=== PATIENT | female | born 1950 | race Caucasian/White ===

== ENCOUNTER 2016-09-09 09:54 | Emergency (ER) | payer MEDICARE, OTHER ==
[~2016-09-09] VITALS: Ht 165.1 cm; Wt 86.4 kg
[~2016-09-09 09:54] MED LIST: ASPI-557 PO; CHLO50TA PO; iron PO
[2016-09-09 09:58] VITALS: Ht 165.1 cm; Wt 86.4 kg
--- NOTE | 2016-09-09 09:58 | NUR ---
HX PT REPORTS DRY HACKY COUGH. COUGH SOUNDS LIKE COUGH SHE HAD WHEN SHE WAS ON LISINOPRIL
--- NOTE | 2016-09-09 10:00 | NUR ---
HX PT REPORTS SHE WAS UP TILL 99 WITH ACID REFLUX
--- OUTSIDE RECORDS SUMMARY | 2016-09-09 10:00 | XMS REPORT | Continuity of Care Document ---
Author Author [facility] Organization [facility] Address Unknown Phone Unavailable Support Name Relationship Address Phone JESSICAHARRY ORTIZ Caregiver [facility] [address] [place], [place] [id number] MARIYA PATEL MD Caregiver [address] [place] [address] DEANGELO CLARK MD Caregiver [address] [place] [address] Jorge MARISCAL Next Of Kin [place], [place] [id number] Insurance Providers Payer Name Policy Number Subscriber Name Relationship Auto A Insurance Amy Mariscal 18 Self Advance Directives Directive Response Recorded Date/Time Advanced Directives Type None 05/19/14 4:00pm Problems Medical Problems Problem Onset Date Status Facial numbness Unknown Active Chest wall pain Unknown Active Headache Unknown Active Medications No known medications. Social History Social History Problem Response Recorded Date/Time Smoking Status Former smoker 05/19/2014 4:00pm When did patient START smoking? AGE 10 05/19/2014 4:00pm When did patient STOP smoking? 1983 05/19/2014 4:00pm Hospital Discharge Instructions No hospital discharge instructions. Plan of Care No plan of care. Functional Status Query Response Date Recorded Physical Hygiene Self May 19, 2014 4:00pm Disabilities None May 19, 2014 4:00pm Devices Used Glasses May 19, 2014 4:00pm Dressing Self May 19, 2014 4:00pm Ambulation Self May 19, 2014 4:00pm Diet Self May 19, 2014 4:00pm Mental Status Alert Oriented May 19, 2014 4:00pm Disabilities None May 19, 2014 4:00pm Devices Used Glasses May 19, 2014 4:00pm Physical Hygiene Self May 19, 2014 4:00pm Dressing Self May 19, 2014 4:00pm Ambulation Self May 19, 2014 4:00pm Diet Self May 19, 2014 4:00pm Allergies, Adverse Reactions, Alerts Allergen Type Severity Reaction Status Last Updated Sulfa (Sulfonamide Antibiotics) Allergy Unknown Active 05/19/14 Amoxicillin Allergy Unknown Active 05/19/14 Immunizations Name Given Type Hx Influenza Vaccination No Historical Hx Influenza Vaccination No Historical Vital Signs Acute Vital Signs Vital Response Date/Time Temperature (Fahrenheit) 96.8 deg F (96.8 - 99.1) Temperature (Calculated Celsius) 36.69824 degrees C (36.0 - 37.3) Pulse Rate (adult) 80 bpm (60 - 100) Respiratory Rate 16 breaths/min (10 - 20) O2 Sat by Pulse Oximetry 99 % (90 - 100) Blood Pressure 137/62 mm Hg Height 5 ft 5 in Weight 197 lb Body Mass Index 32.0 kg/m^2 Results Test Source Date Result Interp. Ref. Range Comments Alanine Aminotransferase (ALT/SGPT) May 19, 2014 4:42pm 38 U/L N 9- 52 Albumin May 19, 2014 4:42pm 4.2 G/DL N 3.5-5.0 Albumin/Globulin Ratio May 19, 2014 4:42pm 1.6 RATIO N 1.1-2.2 Alkaline Phosphatase May 19, 2014 4:42pm 74 U/L N 38-126 Anion Gap May 19, 2014 4:42pm 11 MEQ/L N 5-15 Aspartate Amino Transf (AST/SGOT) May 19, 2014 4:42pm 26 U/L N 14- 36 BUN/Creatinine Ratio May 19, 2014 4:42pm 28 RATIO H 6-26 Basophils # (Auto) November 24, 2007 4:39pm 0.0 T/MM3 N 0-0.2 Basophils (%) (Auto) November 24, 2007 4:39pm 0.4 % N 0-2 Blood Urea Nitrogen May 19, 2014 4:42pm 22.0 MG/DL H 7-17 Bordetella pertussis DNA (PCR) July 08, 2010 1:14pm Ref lab rpt scanned - --- 07/09/10 1549 ---BORDPCR previously reported as: SENT OUT Calcium Level May 19, 2014 4:42pm 9.3 MG/DL N 8.4-10.2 Calculated Osmolality May 19, 2014 4:42pm 278 MOSM/KG N 261-280 Carbon Dioxide Level May 19, 2014 4:42pm 27 MEQ/L N 22-30 Chloride Level May 19, 2014 4:42pm 105 MEQ/L N 98-107 Creatinine May 19, 2014 4:42pm 0.8 MG/DL N 0.7-1.2 Eosinophils # (Auto) November 24, 2007 4:39pm 0.2 T/MM3 N 0-0.5 Eosinophils (%) (Auto) November 24, 2007 4:39pm 2.2 % N 0-4 Globulin May 19, 2014 4:42pm 2.6 G/DL N 2.4-3.6 Glucose Level May 19, 2014 4:42pm 103 MG/DL N 65-110 Hematocrit May 19, 2014 4:42pm 40.9 % N 36-46 Hemoglobin May 19, 2014 4:42pm 13.5 GM/DL N 12-16 Lymphocytes # (Auto) November 24, 2007 4:39pm 2.5 T/MM3 N 1-4.8 Lymphocytes (%) (Auto) November 24, 2007 4:39pm 23.3 % N 23-45 Mean Corpuscular Hemoglobin May 19, 2014 4:42pm 29.3 UUG N 26-34 Mean Corpuscular Hemoglobin Concent May 19, 2014 4:42pm 33.0 GM/DL N 31-37 Mean Corpuscular Volume May 19, 2014 4:42pm 88.7 UM3 N 80-100 Mean Platelet Volume May 19, 2014 4:42pm 9.7 UM3 N 9.4-12.4 Monocytes # (Auto) November 24, 2007 4:39pm 0.6 T/MM3 N 0-0.8 Monocytes (%) (Auto) November 24, 2007 4:39pm 5.7 % N 0-9.0 Neutrophils # (Auto) November 24, 2007 4:39pm 7.3 T/MM3 N 1.8-7.7 Neutrophils (%) (Auto) November 24, 2007 4:39pm 68.4 % H 33-66 Platelet Count May 19, 2014 4:42pm 252 T/MM3 N 130-400 Potassium Level May 19, 2014 4:42pm 3.9 MEQ/L N 3.6-5 RDW Standard Deviation May 19, 2014 4:42pm 42.3 FL N 36.9-50.2 Red Blood Count May 19, 2014 4:42pm 4.61 M/MM3 N 4.00-5.20 Sodium Level May 19, 2014 4:42pm 143 MEQ/L N 134-144 Total Bilirubin May 19, 2014 4:42pm 0.30 MG/DL N 0.20-1.30 Total Protein May 19, 2014 4:42pm 6.8 G/DL N 6.3-8.2 Troponin I May 19, 2014 4:42pm < 0.012 ng/ml 0-0.12 Urine Bilirubin November 24, 2007 4:18pm Negative - Has specimen been collected/obtained? Y Urine Blood November 24, 2007 4:18pm 1+ - Has specimen been collected/ obtained? Y Urine Collection Type November 24, 2007 4:18pm Voided - Has specimen been collected/obtained? Y Urine Color November 24, 2007 4:18pm Yellow - Has specimen been collected/ obtained? Y Urine Glucose (UA) November 24, 2007 4:18pm Negative - Has specimen been collected/obtained? Y Urine Ketones November 24, 2007 4:18pm Negative - Has specimen been collected/obtained? Y Urine Leukocyte Esterase November 24, 2007 4:18pm Negative - Has specimen been collected/obtained? Y Urine Nitrite November 24, 2007 4:18pm Negative - Has specimen been collected/obtained? Y Urine Protein November 24, 2007 4:18pm Negative - Has specimen been collected/obtained? Y Urine RBC November 24, 2007 4:18pm 0-1 /HPF - Has specimen been collected/ obtained? Y Urine Specific [place] November 24, 2007 4:18pm 1.005 - Has specimen been collected/obtained? Y Urine Squamous Epithelial Cells November 24, 2007 4:18pm Few - Has specimen been collected/obtained? Y Urine Turbidity November 24, 2007 4:18pm Clear - Has specimen been collected/obtained? Y Urine Urobilinogen November 24, 2007 4:18pm Normal EU/DL - Has specimen been collected/obtained? Y Urine WBC November 24, 2007 4:18pm None seen /HPF - Has specimen been collected/obtained? Y Urine pH November 24, 2007 4:18pm 7.0 - Has specimen been collected/ obtained? Y White Blood Count May 19, 2014 4:42pm 9.1 T/MM3 N 4.5-11.0 Chemistry Specimen Hemolysis May 19, 2014 4:42pm < 15 0-25 0-25 : No Hemolysis.26-70: Slight Hemolysis - can falsely elevate K and Urine Protein. 71-285: Moderate Hemolysis - can falsely elevate K, Troponin I, CA 19-9, PTH, CSF GLucose, and Urine Protein, and can falsely decrease Phenytoin. 286-999: Gross Hemolysis - can falsely elevate K, Troponin I, CA 19-9, PTH, CSF Glucose, and Urine Protine, and can falsely decrease Phenytoin. Recommend specimen recollection. Lab Scanned Report July 09, 2010 4:34pm [facility] [id number] - Turbidity May 19, 2014 4:42pm < 20 0-20 Glomerular Filtration Rate Calc May 19, 2014 4:42pm 72 - Icterus Index May 19, 2014 4:42pm < 2 0-7 Procedures No known history of procedures. Encounters Encounter Location Date/Time Departed Emergency Room [facility] 05/19/14 4:00pm Recent Diagnosis
--- OUTSIDE RECORDS SUMMARY | 2016-09-09 10:00 | XMS REPORT | Continuity of Care Document ---
Author Author [facility] Organization [facility] Address Unknown Phone Unavailable Support Name Relationship Address Phone CAROL BENITES APRN Caregiver [address] [place] [address] Unavailable DIANNA WISE DO Caregiver [address] [place] [address] Unavailable Jorge MARISCAL Next Of Kin [address] [place] [address] CP Insurance Providers Guarantor Amy Mariscal Address [address] [place] [address] CP Email [email or web address] Payer [employer] Policy Number [id number] Subscriber's Name Amy Mariscal Relationship 18 Self Group Number [facility] Payer Medicare Policy Number [id number] Subscriber's Name Amy Mariscal Relationship 18 Self Chief Complaint and Reason for Visit Chief Complaint Chest Pain Reason for Visit [id number] Atypical chest pain Problems Active Problems Medical Problem Onset Date Status Atypical chest pain Unknown Acute Chest wall pain Unknown Acute Facial numbness Unknown Acute Facial numbness Unknown Acute Headache Unknown Acute Numbness and tingling Unknown Acute Past Problems Medical Problem Onset Date Atypical chest pain Unknown Neck strain Unknown Medications Current Home Medications Medication Dose Units Route Directions Days Qty Instructions Start Date Aspirin (Aspir 81) 81 Mg Tablet.dr 81 Mg Oral Daily 09/07/16 Chlorthalidone 50 Mg Tablet 50 Mg Oral Give With Breakfast BEST TAKEN WITH FOOD. 09/07/16 Iron 1 Tab Oral Daily 09/07/16 Social History Social History Problem Response Recorded Date/Time Onset Date Status Hx Substance Use No 09/07/2016 5:04pm Not Applicable Not Applicable Hx Alcohol Use No 09/07/2016 5:04pm Not Applicable Not Applicable Tobacco Usage none 05/19/2014 4:50pm Not Applicable Not Applicable Query Response Start Date Stop Date Smoking Status Never smoker Hospital Discharge Instructions No hospital discharge instructions. Plan of Care Discharge Date 09/07/16 6:05pm Disposition 01 DISCHARGED HOME, SELF-CARE Condition at Discharge Stable Instructions/Education Provided Chest Pain (ED) Prescriptions See Medication Section Referrals CAROL BENITES [employer] Address: [address] [place] [address] [phone] Additional Instructions/Education Follow up for recheck of your labs if your symptoms continue to make sure that your potassium is back in normal range. Your labs today look good. I do want you to make sure that you are drinking plenty of fluids at home. Follow up with Dr Dominguez or your primary care provider as needed. Care Plan and Goals Physician Care Plan Problem:Numbness/tingling, chest pain Goal: Follow up with primary care provider Instructions: Take medications and follow care plan as discussed/written Functional Status No functional status results. Allergies, Adverse Reactions, Alerts Allergen Type Severity Reaction Status Last Updated Sulfa (Sulfonamide Antibiotics) Allergy Unknown Active 09/07/16 Lisinopril Allergy Unknown Active 09/07/16 Hydrochlorothiazide Allergy Unknown Active 09/07/16 Chlorthalidone Allergy Unknown Active 09/07/16 Amoxicillin Allergy Unknown Active 09/07/16 Losartan Allergy Unknown Active 09/07/16 Immunizations Query Response on File Recorded Date/Time Hx Influenza Vaccination No 05/19/14 4:00pm Hx Influenza Vaccination No 05/19/14 4:00pm Influenza Vaccine Hx NO 09/07/16 5:04pm Vital Signs Acute Vital Signs Vital Response Date/Time Temperature (Fahrenheit) 97.8 deg F (96.8 - 99.1) 09/07/2016 6:05pm Temperature (Calculated Celsius) 36.15858 degrees C (36.0 - 37.3) 09/07/2016 6:05pm Pulse Rate (adult) 80 bpm (60 - 100) 09/07/2016 6:05pm Respiratory Rate 20 breaths/min (10 - 20) 09/07/2016 6:05pm O2 Sat by Pulse Oximetry 99 % (90 - 100) 09/07/2016 6:05pm Blood Pressure 129/63 mm Hg 09/07/2016 6:05pm Height (Feet) 5 feet 09/07/2016 4:23pm Height (Inches) 5.50 inches 09/07/2016 4:23pm Weight (Kilograms) 85.000 kg 09/07/2016 4:23pm Body Mass Index (BMI) 30.0 09/07/2016 4:23pm Results Laboratory Results Test Name Result Units Flags Reference Collection Date/Time Result Date/ Time Comments White Blood Count 9.5 T/MM3 4.5-11.0 09/07/2016 4:1609/07/2016 4: 37pm Red Blood Count 4.59 M/MM3 4.00-5.20 09/07/2016 4:09/07/2016 4: 37pm Hemoglobin 13.7 GM/DL 12-16 09/07/2016 4:09/07/2016 4:37pm Hematocrit 40.2 % 36-46 09/07/2016 4:09/07/2016 4:37pm Mean Corpuscular Volume 87.6 UM3 80-100 09/07/2016 4:09/07/2016 4: 37pm Mean Corpuscular Hemoglobin 29.8 UUG 26-34 09/07/2016 4:2016 4:37pm Mean Corpuscular Hemoglobin Concent 34.1 GM/DL 31-37 09/07/2016 4:09/07/2016 4:37pm RDW Standard Deviation 39.4 FL 36.9-50.2 09/07/2016 4:09/07/2016 4 :37pm Platelet Count 283 T/MM3 130-400 09/07/2016 4:09/07/2016 4:37pm Mean Platelet Volume 9.9 UM3 9.4-12.4 09/07/2016 4:09/07/2016 4: 37pm Neutrophils (%) (Auto) 60.8 % 33-66 09/07/2016 4:09/07/2016 4: 37pm Lymphocytes (%) (Auto) 27.3 % 23-45 09/07/2016 4:09/07/2016 4: 37pm Monocytes (%) (Auto) 6.5 % 0-9.0 09/07/2016 4:09/07/2016 4:37pm Eosinophils (%) (Auto) 4.8 % H 0-4 09/07/2016 4:09/07/2016 4:37pm Basophils (%) (Auto) 0.5 % 0-2 09/07/2016 4:09/07/2016 4:37pm Immature Granulocyte % (Auto) 0.1 % 0.0-0.5 09/07/2016 4:16pm 2016 4:37pm Absolute Neutrophils (auto) 5.8 T/MM3 1.8-7.7 09/07/2016 4:162016 4:37pm Absolute Lymphocytes (auto) 2.6 T/MM3 1-4.8 09/07/2016 4:162016 4:37pm Absolute Monocytes (auto) 0.6 T/MM3 0-0.8 09/07/2016 4:1609/07/2016 4:37pm Absolute Eosinophils (auto) 0.5 T/MM3 0-0.5 09/07/2016 4:16pm 2016 4:37pm Absolute Basophils (auto) 0.1 T/MM3 0-0.2 09/07/2016 4:16pm 09/07/2016 4:37pm Absolute Immature Granulocyte (auto 0.01 T/MM3 0.00-0.03 09/07/2016 4: 09/07/2016 4:37pm Icterus Index < 2 0-7 09/07/2016 4:pm 09/07/2016 4:49pm Chemistry Specimen Hemolysis < 15 0-25 09/07/2016 4:09/07/2016 4 :49pm 0-25: Specimen Exhibited No Hemolysis. Turbidity < 20 0-20 09/07/2016 4:09/07/2016 4:49pm Sodium Level 142 MEQ/L 134-144 09/07/2016 4:09/07/2016 4:49pm Potassium Level 3.1 MEQ/L L 3.6-5 09/07/2016 4:09/07/2016 4:49pm Chloride Level 103 MEQ/L 98-107 09/07/2016 4:09/07/2016 4:49pm Carbon Dioxide Level 29 MEQ/L 22-30 09/07/2016 4:09/07/2016 4: 49pm Anion Gap 10 MEQ/L 5-15 09/07/2016 4:16pm 09/07/2016 4:49pm Blood Urea Nitrogen 23.0 MG/DL H 7-17 09/07/2016 4:09/07/2016 4: 49pm Creatinine 0.6 MG/DL L 0.7-1.2 09/07/2016 4:16pm 09/07/2016 4:49pm BUN/Creatinine Ratio 38 RATIO H 6-26 09/07/2016 4:16pm 09/07/2016 4: 49pm Glomerular Filtration Rate Calc 100 09/07/2016 4:16pm 09/07/2016 4: 49pm Glucose Level 117 MG/DL H 65-110 09/07/2016 4:16pm 09/07/2016 4:49pm Calculated Osmolality 278 MOSM/KG 261-280 09/07/2016 4:16pm 09/07/2016 4:49pm Calcium Level 9.3 MG/DL 8.4-10.2 09/07/2016 4:16pm 09/07/2016 4:49pm Troponin I < 0.012 ng/ml 0-0.12 09/07/2016 4:16pm 09/07/2016 4:59pm Troponin values with a difference of 55% increase from orginal troponin value represent a true biological DELTA value. (%increase Calc=Orginal Troponin value, divided by subsequent Troponin value, multiplied by 100) Name: AMY MARISCAL Unit #: [id number] : 1950 Sex: F Admit Date: Loc / Svc: ED Discharge Date: DIAGNOSTIC IMAGING REPORT Report #: [id number] [facility] BUZZ Lizama Indication: ITS.REASON: chest pain Procedure: CHEST, PA LATERAL: Encounter: Initial Comparison: 02/24/2016 Technique: PA and lateral radiographs of the chest were obtained. Findings: Lungs and airways: Normal lung volumes. No focal airspace consolidation. Normal pulmonary vasculature. Pleura: No pleural effusion or pneumothorax. Heart and mediastinum: The cardiomediastinal silhouette and great vessels are within normal limits. Osseous structures and soft tissues: No acute osseous abnormality is seen. Degenerative arthrosis of the AC joints. Impression: No acute cardiopulmonary process. . Procedures No known history of procedures. Encounters Encounter Location Arrival/Admit Date Discharge/Depart Date Attending Provider Departed Emergency Room [facility] 09/07/16 4:04pm 09/07/16 6: 05pm DIANNA WISE DO Recent Diagnosis
--- OUTSIDE RECORDS SUMMARY | 2016-09-09 10:00 | XMS REPORT | Continuity of Care Document ---
Author Author [facility] Organization [facility] Address Unknown Phone Unavailable Allergies Medications Problems Procedures Results Encounters ACCT No. Visit Date/Time Discharge Status Pt. Type Provider Facility Loc./Unit Complaint [id number] 09/16/2013 10:49:00 09/16/2013 23 :59:59 CLS Outpatient [id number] 09/02/2013 10:22:00 09/02/2013 23 :59:59 CLS Outpatient [id number] 08/13/2013 16:42:00 08/13/2013 23 :59:59 CLS Outpatient [id number] 07/30/2013 08:56:00 07/30/2013 23 :59:59 CLS Outpatient
[2016-09-09] MEDS ORDERED: NITR0.4T PO (10:28)
[2016-09-09] MEDS ORDERED: GADOBUTROL 10mMol/10ml INJECTION IV ONE (10:36)
[2016-09-09] MEDS ORDERED: SALINE FLUSH 10ml SYRINGE ONE (10:37)
--- NOTE | 2016-09-09 10:41 | ERPDOC ---
Departure Disposition Decision Date: Sep 09, 2016 Disposition Decision Time: 14:40 Disposition: 01 DISCHARGED HOME, SELF-CARE Impression Impression Impression: Primary Impression: Chest wall pain Additional Impressions: Hypertension Anxiety Severity: Moderate Condition: Improved Seen By: Physician only Referrals: CAROL BENITES APRN (Family) Patient Instructions: Noncardiac Chest Pain (ED) Problems/Meds/Labs Reviewed?: Yes Medications reviewed and manag: Yes Additional Instructions: Follow-up with cardiology about your blood pressure management and possible cardiac stress test. Return to emergency department if you have more chest pain. Ativan 0.5 mg tab, 1 tablet daily as needed for anxiety. Follow up care ordered?: Yes Mental Status: Alert, Oriented Scripts Lorazepam (Ativan) 0.5 Mg Tablet 0.5 MG PO DAILY for ANXIETY, #10 TAB Prov: LUIS PEREIRA MD 09/09/16 HPI - Chest Pain General Chief Complaint: Chest Pain Stated Complaint: REFFERED NEDICH, HEAVY CHEST, FEVER, POSS UTI Time Seen by Provider: 10:37 HPI - Chest Pain Initial Comments 65-year-old female presents with chest pain times greater than 1 week. She's had chest tightness since she went on a blood pressure med several weeks ago, she was changed to chlorthalidone, but is continued to have some symptoms of dizziness, lightheadedness, chest tightness. She did have really bad heartburn this morning which she describes as "fierce". She went to her physician's office and was sent to the emergency department for evaluation due to chest pain. She doesn't feel like this is really a change from more she's been, but respects that her provider was concerned and so she came in. She's had no nausea vomiting, no diaphoresis. No shortness of breath. She is definitely stressed because she has felt so bad over the last couple weeks. She's had no energy, is felt lightheaded, dizzy, decreased appetite, very tired but poor sleeping. Aspirin Treatment Today: 81 mg x 4 Allergies: Coded Allergies: Sulfa (Sulfonamide Antibiotics) (Verified Allergy, Unknown, 09/09/16) amoxicillin (Verified Allergy, Unknown, 09/09/16) chlorthalidone (Verified Allergy, Unknown, 09/09/16) hydrochlorothiazide (Verified Allergy, Unknown, 09/09/16) lisinopril (Verified Allergy, Unknown, 09/09/16) losartan (Verified Allergy, Unknown, 09/09/16) Past History Past Medical History Metabolic: hypertension Hx Echocardiogram: No Surgical History General: other Family History Family PMH: FOUND: CAD, AL, other Vaccines Hx Influenza Vaccination: No Social History Smoking Status: Never smoker Substance Use Type: does not use Alcohol Intake: none Sexuality: male partner Record Review Pertinent history updated: Yes Review of Systems Cardiovascular Cardiac: see HPI Pulmonary Respiratory: see HPI GI Upper Abdomen: see HPI All other Systems All Other Systems: Reviewed and Negative Physical Exam General General Nourishment: well nourished, well developed, appears stated age, no acute distress General Body Habitus: well groomed Vitals and Pain First Documented Vital Signs Date Time Temp Pulse Resp B/P Pulse Ox O2 Delivery O2 Flow Rate FiO2 09/09/16 09:58 98.2 68 15 185/73 100 Room Air Weight: Kilograms: Height (feet): 5 Height (inches): 5.50 Triage Pain Scale: Normal Exams: Head: Normocephalic w/o trauma Chest/Resp: Clear all [place], with good airflow, and symmetry bilaterally CV: Regular rate and rhythm, without murmur or gallop, Pulses 2+ all extremities, capillary refill, <2 seconds all ext., no pedal edema noted Abdomen: Bowel sounds positive, soft, non-tender, non-distended, no hepatosplenomegaly, masses or bruits noted Neurologic: Patient is alert, and oriented, cranial nerves, motor/sensory/ cerebellar, exams w/o gross deficits, to observation Psychiatric: Patient exhibits, appropriate attention, emotion and affect Differential Diagnoses Considering: Acute AL, Anxiety/Panic, Angina, Pericarditis, Pneumonia, Pulmonary Edema, Pulmonary Embolus Progress Results/Orders Orders Procedure Category Date Status Time Cbc W/Auto LAB 09/09/16 Complete Diff-Reflex Manual 10:42 Cmp - Comprehensive LAB 09/09/16 Complete Metabolic 10:42 Probnp LAB 09/09/16 Complete 10:42 Troponin I W LAB 09/09/16 Complete Hemolysis Index 10:42 INR LAB 09/09/16 Complete 10:42 Ua, Dip Wreflex LAB 09/09/16 Complete Microsc & Patient Carrier 10:42 D-Dimer LAB 09/09/16 Complete 10:42 Tsh - Thyroid Stim LAB 09/09/16 Complete Hormone 10:42 EKG EKG 09/09/16 Logged 10:42 Chest, Pa & Lateral RAD 09/09/16 Resulted 10:42 Aspirin (Asa) PHA 09/09/16 Complete 10:45 Nitroglycerin PHA 09/09/16 In Process (Nitrostat) 10:45 G.I. Cocktail PHA 09/09/16 Complete (/Maalox/Lidocaine 10:45 Lorazepam (Ativan) PHA 09/09/16 Complete 13:15 Lab Results Laboratory Tests Test 09/09/16 10:16 09/09/16 10:58 Urine Collection Type Voided-not cc-midstr Urine Color Yellow Urine Turbidity Clear Urine pH 5.5 Urine Specific [place] <=1.005 Urine Protein Negative Urine Glucose (UA) Negative Urine Ketones Negative Urine Blood Negative Urine Nitrite Negative Urine Bilirubin Negative Urine Urobilinogen 0.2EU/DL Urine Leukocyte Esterase Negative Urinalysis Comment Microscopic not ind. White Blood Count 7.9T/MM3 Red Blood Count 4.38M/MM3 Hemoglobin 13.2GM/DL Hematocrit 39.1% Mean Corpuscular Volume 89.3UM3 Mean Corpuscular Hemoglobin 30.1UUG Mean Corpuscular Hemoglobin Concent 33.8GM/DL RDW Standard Deviation 40.7FL Platelet Count 242T/MM3 Mean Platelet Volume 9.6UM3 Immature Granulocyte % (Auto) 0.1% Neutrophils (%) (Auto) 53.7% Lymphocytes (%) (Auto) 32.1% Monocytes (%) (Auto) 8.0% Eosinophils (%) (Auto) 5.7% Basophils (%) (Auto) 0.4% Absolute Immature Granulocyte (auto 0.01T/MM3 Absolute Neutrophils (auto) 4.2T/MM3 Absolute Lymphocytes (auto) 2.5T/MM3 Absolute Monocytes (auto) 0.6T/MM3 Absolute Eosinophils (auto) 0.5T/MM3 Absolute Basophils (auto) 0.0T/MM3 Prothromb Time International Ratio 0.99 D-Dimer < 150NG/ML Turbidity < 20 Sodium Level 145MEQ/L Potassium Level 4.8MEQ/L Chloride Level 105MEQ/L Carbon Dioxide Level 29MEQ/L Anion Gap 11MEQ/L Blood Urea Nitrogen 18.0MG/DL Creatinine 0.6MG/DL Glomerular Filtration Rate Calc 100 BUN/Creatinine Ratio 30RATIO Glucose Level 92MG/DL Calculated Osmolality 281MOSM/KG Calcium Level 9.6MG/DL Total Bilirubin 0.40MG/DL Icterus Index < 2 Aspartate Amino Transf (AST/SGOT) 23U/L Alanine Aminotransferase (ALT/SGPT) 33U/L Alkaline Phosphatase 66U/L Troponin I < 0.012ng/ml CH-Kln-K-Type Natriuretic Peptide 289PG/ML Total Protein 6.9G/DL Albumin 4.0G/DL Globulin 2.9G/DL Albumin/Globulin Ratio 1.4RATIO Thyroid Stimulating Hormone (TSH) 0.91MIU/L Chemistry Specimen Hemolysis < 15 Medications Current ED Medications Gadobutrol (Gadavist) STK-MED ONCE IV ; Start 09/09/16 at 10:36; Stop 09/09/16 at 10:37; Status DC Sodium Chloride (Iv Flush) 10 ml STK-MED ONCE .ROUTE ; Start 09/09/16 at 10:37; Stop 09/09/16 at 10:38; Status DC Aspirin (ASA) 324 mg O ONCE PO Last administered on 09/09/16 10:58; Start at 10:45; Stop 09/09/16 at 10:46; Status DC Nitroglycerin (Nitrostat) 0.4 mg Q5MIN PRN SL CHEST PAIN; Start 09/09/16 at 10: 45 Pharmacy Profile Note (/Maalox/ Lidocaine Soln) 30 ml O ONCE PO Last administered on 09/09/16 10:59; Start 09/09/16 at 10:45; Stop 09/09/16 at 10:47 ; Status DC Lorazepam (Ativan) 0.5 mg O ONCE PO Last administered on 09/09/16 13:21; Start 09/09/16 at 13:15; Stop 09/09/16 at 13:16; Status DC Progress Progress Labs returned normal, chest x-ray is appropriate. EKG is negative. Blood pressure stayed elevated, initially, by time of discharge had decreased to 145/ 68. She would like to stay off the blood pressure meds if possible. She has had side effects with them and is not comfortable with them. I recommended she follow up with cardiology to see about a change in the medication. Also like her to follow up on the possible need of a cardiac stress test. While she was here, she spoke with a coworker over the phone. They talked about some stress at work and her blood pressure jumped to 190s systolic. She wondered if that was part of the cause of her hypertension. I agreed to try Ativan, we did Ativan 0.5 mg by mouth 1. She had great response, blood pressure decreased and she was much more comfortable. I don't want to use this long-term, but do think short-term or occasional it may be appropriate for her. She'll need to discuss this with her primary care provider to make sure that it is appropriate. She was given Ativan 0.5 mg, #10 tabs total to be used once daily as needed. My hope would be that she would start some much further than 10 days. LUIS PEREIRA MD Sep 09, 2016 10:41
[2016-09-09] MEDS ORDERED: ASPIRIN 81 MG CHEWABLE TABLET PO ONE (10:45)
[2016-09-09] MEDS ORDERED: G.I. COCKTAIL 30ml PO ONE (10:45)
[2016-09-09] MEDS ORDERED: NITROGLYCERIN 0.4 MG SUBLINGUAL TABLET SL PRN (10:45)
--- OUTSIDE RECORDS SUMMARY | 2016-09-09 10:46 | XMS REPORT | Continuity of Care Document ---
Author Author [facility] Organization [facility] Address Unknown Phone Unavailable Support Name Relationship Address Phone JESSICAHARRY ORTIZ Caregiver [facility] [address], [place] [id number] MARIYA PATEL MD Caregiver [address] [place] [address] DEANGELO CLARK MD Caregiver [address] [place] [address] Jorge MARISCAL Next Of Kin [place], [place] [id number] Insurance Providers Payer Name Policy Number Subscriber Name Relationship Auto A Insurance Aym Mariscal 18 Self Advance Directives Directive Response [...] F (96.8 - 99.1) Temperature (Calculated Celsius) [phone] degrees C (36.0 - 37.3) Pulse Rate [...] specimen been collected/ obtained? Y Urine Specific [place] November 24, 2007 4:18pm 1.005 - Has [...] Report July 09, 2010 4:34pm REFERENCE LAB [id number] - Turbidity May 19, 2014 4:42pm < 20 0-20 Glomerular Filtration Rate Calc May 19, 2014 4:42pm 72 - Icterus Index May 19, 2014 4:42pm < 2 0-7 Procedures No known history of procedures. Encounters Encounter Location Date/Time Departed Emergency Room [facility] 05/19/14 4:00pm Recent Diagnosis
--- OUTSIDE RECORDS SUMMARY | 2016-09-09 10:47 | XMS REPORT | Continuity of Care Document ---
Author Author [facility] Organization [facility] Address Unknown Phone Unavailable Allergies Medications Problems Procedures Results Encounters ACCT No. Visit Date/Time Discharge Status Pt. Type Provider Facility Loc./Unit Complaint [id number] 09/16/2013 10:49:00 09/16/2013 23 :59:59 CLS Outpatient [id number] 09/02/2013 10:22:00 09/02/2013 23 :59:59 CLS Outpatient [id number] 08/13/2013 16:42:00 08/13/2013 23 :59:59 CLS Outpatient [id number] 07/30/2013 08:56:00 07/30/2013 23 :59:59 CLS Outpatient
[2016-09-09 10:59] LABS: BLOOD, URINE NEGATIVE (NEGATIVE); COLOR,URINE YELLOW (YELLOW); LEUKOCYTE ESTERASE ,URINE NEGATIVE (NEGATIVE); NITRITE,URINE NEGATIVE (NEGATIVE); UROBILINOGEN,URINE 0.2 EU/DL (NORMAL)
[2016-09-09 11:04] LABS: BASOPHILS % (AUTO) 0.4 % (0-2); EOSINOPHILS # (AUTO) 0.5 T/MM3 (0-0.5); EOSINOPHILS % (AUTO) 5.7 % (0-4); HCT - HEMATOCRIT 39.1 % (36-46); HGB - HEMOGLOBIN 13.2 GM/DL (12-16); IMMATURE GRANULOCYTE # (AUTO) 0.01 T/MM3 (0.00-0.03); IMMATURE GRANULOCYTE % (AUTO) 0.1 % (0.0-0.5); LYMPHOCYTES # (AUTO) 2.5 T/MM3 (1-4.8); LYMPHOCYTES % (AUTO) 32.1 % (23-45); MEAN CORPUSCULAR HGB 30.1 UUG (26-34); MEAN CORPUSCULAR HGB CONC(MCHC 33.8 GM/DL (31-37); MEAN CORPUSCULAR VOLUME 89.3 UM3 (80-100); MEAN PLATELET VOLUME 9.6 UM3 (9.4-12.4); MONOCYTES # (AUTO) 0.6 T/MM3 (0-0.8); NEUTROPHILS #(AUTO)-ABSOLUTE 4.2 T/MM3 (1.8-7.7); NEUTROPHILS % (AUTO) 53.7 % (33-66); RED BLOOD COUNT 4.38 M/MM3 (4.00-5.20); WBC - WHITE BLOOD COUNT 7.9 T/MM3 (4.5-11.0)
--- NOTE | 2016-09-09 11:11 | NUR ---
GI PT IS FEELING BETTER AFTER GI COCKTAIL. SAYS PRILOSEC DOESN'T HELP LIKE THIS DID
[2016-09-09 11:12] LABS: INR 0.99 (0.76-1.04); PROTHROMBIN TIME 10.8 SEC (9.31-12.49)
--- NOTE | 2016-09-09 11:12 | NUR ---
TO [facility] PER CART
[2016-09-09 11:13] LABS: ALBUMIN/GLOBULIN RATIO 1.4 RATIO (1.1-2.2); ALKALINE PHOSPHATASE 66 U/L (38-126); ALT (SGPT) 33 U/L (9-52); ANION GAP 11 MEQ/L (5-15); AST (SGOT) 23 U/L (14-36); BUN/CREATININE RATIO 30 RATIO (6-26); CALCIUM 9.6 MG/DL (8.4-10.2); CHLORIDE 105 MEQ/L (98-107); CO2 - CARBON DIOXIDE 29 MEQ/L (22-30); CREATININE 0.6 MG/DL (0.7-1.2); GLOMERULAR FILTRATION RATE 100; GLUCOSE 92 MG/DL (65-110); POTASSIUM 4.8 MEQ/L (3.6-5); SODIUM 145 MEQ/L (134-144); TOTAL PROTEIN 6.9 G/DL (6.3-8.2)
--- NOTE | 2016-09-09 11:19 | NUR ---
RETURNED FROM [facility]
--- NOTE | 2016-09-09 11:19 | NUR ---
DISMISSAL INSTRUCTIONS REVIEWED. PT IS SYPMTOM FREE. DISCHARGED AMB Addendum: 09/10/16 at 0835 by MARKEL CORRECT TIME IS [id number]
[2016-09-09 11:25] LABS: PROBNP 289 PG/ML (0-175)
--- NOTE | 2016-09-09 11:31 | DI ---
EXAM: CHEST, PA LATERAL COMPARISON: 09/07/2016. 02/24/2016. HISTORY: ITS.REASON: pain . FINDINGS: The cardiomediastinal silhouette is within limits of normal. The pulmonary vascularity appears unremarkable. The lungs are clear. There is no evidence for pleural effusion. There is no evidence for a pneumothorax. No osseous abnormalities are identified. IMPRESSION: Unremarkable exam. LOCATION OF DICTATION: [facility] – [place] .
[2016-09-09 11:43] LABS: THYROID STIM HORMONE-TSH 0.91 MIU/L (0.47-4.68)
--- NOTE | 2016-09-09 12:30 | NUR ---
STATUS NO ROGER, CP OR ACID REFLUX. VS STABLE. MONITOR SR
--- NOTE | 2016-09-09 13:10 | NUR ---
DR PEREIRA IN
[2016-09-09] MEDS ORDERED: LORAZEPAM 0.5 MG TABLET PO ONE (13:15)
--- NOTE | 2016-09-09 14:19 | NUR ---
DR PEREIRA IN
[2016-09-09] MEDS ORDERED: LORA0.5T86 PO (14:42)
[2016-09-09 14:45] VITALS: BP 145/68; PULSE 71; RESP 17; TEMP 98.3; O2SAT 98
== END 2016-09-09 14:45 | disposition home or self-care (01) ==
LOC: ED 09:54
DX: R07.89 Other chest pain (principal); F41.9 Anxiety disorder, unspecified; I10 Essential (primary) hypertension
CPT/HCPCS: 36415; 71020; 80053; 81003; 83880; 84443; 84484; 85025; 85379; 85610; 93005; 99283; A9270; A9585; J7999